=== PATIENT | male | born 1960 | race Caucasian/White ===

== ENCOUNTER 2017-08-04 12:00 | Emergency (ER) | payer BC ==
[2017-08-04 13:37] VITALS: BP 135/72
--- NOTE | 2017-08-04 14:04 | UC ---
Knee Pain HPI - HPI Summary HPI Summary: pt c/o sudden onset of left knee pain after standing from prone position quickly last night and had sudden onset of left medial and posterior knee pain and pain with ROM. Pt c/o pain at left medial joint space. - History of Current Complaint Chief Complaint: UCLowerExtremity Stated Complaint: LEFT KNEE PAIN Time Seen by Provider: 08/04/17 13:39 Hx Obtained From: Patient Onset/Duration: Sudden Onset, Still Present Severity Initially: Moderate Severity Currently: Moderate Pain Intensity: 6 Character: Dull, Aching, Stiffness Aggravating Factor(s): Movement, Weight Bearing, Prolonged Standing, Stairs Alleviating Factor(s): Rest, Position Associated Signs And Symptoms: Positive: Negative Able to Bear Weight: Yes - Risk Factors Septic Arthritis Risk Factor: Negative Gout Risk Factor: Age ^ 41, Male, Obesity - Allergies/Home Medications Allergies/Adverse Reactions: Allergies Allergy/AdvReac Type Severity Reaction Status Date / Time No Known Allergies Allergy Verified 08/04/17 13:37 Home Medications: Home Medications Ibuprofen TAB* [Motrin TAB* 400 MG] 400 mg PO Q6H PRN 08/04/17 [History Confirmed 08/04/17] PMH/Surg Hx/FS Hx/Imm Hx Previously Healthy: Yes - Surgical History Surgical History: Yes Surgery Procedure, Year, and Place: prostatectomy 2011 - Family History Known Family History: Positive: Hypertension - Social History Occupation: Employed Full-time Lives: With Family Alcohol Use: Occasionally Substance Use Type: None Smoking Status (MU): Never Smoked Tobacco Have You Smoked in the Last Year: No - Immunization History Most Recent Influenza Vaccination: none Review of Systems Constitutional: Negative Skin: Negative Eyes: Negative ENT: Negative Respiratory: Negative Cardiovascular: Negative Gastrointestinal: Negative Genitourinary: Negative Motor: Decreased ROM - left knee Neurovascular: Negative Musculoskeletal: Arthralgia - left knee, Decreased ROM - left knee, Myalgia - left knee Neurological: Negative Psychological: Negative Is Patient Immunocompromised?: No All Other Systems Reviewed And Are Negative: Yes Physical Exam Triage Information Reviewed: Yes Appearance: Well-Appearing Vital Signs: Initial Vital Signs Temp 98.2 F 08/04/17 13:34 Pulse 80 08/04/17 13:34 Resp 16 08/04/17 13:34 BP 135/72 08/04/17 13:34 Pulse Ox 98 08/04/17 13:34 Vital Signs Reviewed: Yes Eye Exam: Normal ENT Exam: Normal Neck exam: Normal Respiratory Exam: Normal Musculoskeletal: Positive: ROM Limited @ - left knee, Other: - mild laxity with drawer test, tenderness left knee medial aspect joint space Neurological Exam: Normal Psychological Exam: Normal Skin Exam: Normal Knee Pain Course/Dx - Course Course Of Treatment: I spoke to the patient about follow up with an orthopedic provider. An appointment was arranged for at 1430. Pt agreed to plan of care. - Differential Dx/Diagnosis Differential Diagnosis/HQI/PQRI: Internal Derangement Of Knee, Sprain Provider Diagnoses: left knee pain. left knee sprain Discharge - Discharge Plan Condition: Stable Disposition: HOME Patient Education Materials: Knee Pain (ED) Referrals: Jose Doan MD [Medical Doctor] - 08/04/17 2:30 pm Inna Bills MD [Primary Care Provider] -
== END 2017-08-04 14:10 | disposition home or self-care (01) ==
LOC: UCCORT 12:00
DX: S83.92XA Sprain of unspecified site of left knee, initial encounter (principal); X50.0XXA Overexertion from strenuous movement or load, initial encounter; Y93.89 Activity, other specified; Y92.9 Unspecified place or not applicable
CPT/HCPCS: 99211; G0463